=== PATIENT | female | born 1985 | race Caucasian/White ===

== ENCOUNTER 2016-10-13 08:33 | Emergency (ER) | payer MEDICAID ==
[~2016-10-13] VITALS: Ht 152.4 cm; Wt 56.3 kg
[2016-10-13 08:40] VITALS: Ht 152.4 cm; Wt 56.3 kg
--- NOTE | 2016-10-13 08:58 | ERD ---
ER Documentation Chief Complaint Date/Time DATE: 10/13/16 TIME: 08:56 Chief Complaint anxiety with cwp since yesterday, tearful HPI This a 31-year-old female who presents to the emergency department today complaining of chest wall pain that started yesterday while she was laying down. Patient states she took Advil with limited improvement. States that she is worried that there is something very wrong. Denies any fevers or chills, cough. 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 Denies any increased stress ROS All systems reviewed and are negative except as per history of present illness. Medications Home Meds Active Scripts Acetaminophen* (Tylophen*) 500 Mg Capsule, 1 CAP PO Q6H Y for PAIN AND OR ELEVATED TEMP, #30 CAP Prov:MARTINA DE LA GARZA PA-C 10/13/16 Naproxen* (Naprosyn*) 500 Mg Tablet, 500 MG PO BID Y for PAIN AND/OR INFLAMMATION, #30 TAB Prov:MARTINA DE LA GARZA PA-C 10/13/16 Physical Exam Vitals Vital Signs Date Time Temp Pulse Resp B/P Pulse Ox O2 Delivery O2 Flow Rate FiO2 10/13/16 08:40 98.1 80 18 140/78 99 Physical Exam Const: Tearful Head: Atraumatic Eyes: Normal Conjunctiva ENT: Normal External Ears, Nose and Mouth. Neck: Full range of motion..~ No meningismus. Resp: Clear to auscultation bilaterally. No absent breath sounds. No wheezing. Tenderness to palpation sternum and increased pain when trying turning to the right Cardio: Regular rate and rhythm, no murmurs Abd: Soft, non tender, non distended. Normal bowel sounds Skin: No petechiae or rashes Neur: Awake and alert Psych: Normal Mood and Affect Results 24 hrs Current Medications Medications (Trade) Dose Ordered Sig/Julia Route PRN Reason Start Time Stop Time Status Last Admin Dose Admin Acetaminophen/ Hydrocodone Bitart (Hancock (5/325)) 1 tab ONCE ONCE PO 10/13/16 09:00 10/13/16 09:01 DC 10/13/16 09:00 DIAGNOSTIC IMAGING REPORT Patient: MARY ANN SUAREZ : 1985 Age: 31 Sex: F MR #: [id number] DOS: 10/13/16 0000 Ordering MD: MARTINA DE LA GARZA PA-C Location: [facility] Room/Bed: PROCEDURE: XR Chest. CLINICAL INDICATION: Chest pain/shortness of breath TECHNIQUE: Chest PA. COMPARISON: No comparison available. FINDINGS: The mediastinal structures are unremarkable. The heart is normal in size and configuration. The pulmonary vascularity is normal. The lung camacho are unremarkable. No consolidation is identified. The pleural spaces are unremarkable. The axial skeleton is unremarkable. IMPRESSION: No active intrathoracic disease. RPTAT: HGDB .Raphael Eng MD, Date Time Electronically viewed and signed by .Raphael Eng MD, on 10/13/2016 09:23 .B/ CC: MARTINA DE LA GARZA PA-C Procedures/MDM This a 31-year-old female who presents to the emergency department today complaining of chest wall pain that started yesterday. Patient denied any increased stress and I do not feel that this is anxiety related however patient did indicate that she was worried that there was something really wrong with her. I did obtain a chest x-ray and EKG EKG read and interpreted by Dr. Mansfield. Rate [address] elevation. No QT prolongation. Normal sinus rhythm. Low suspicion for acute VA, PE, pericarditis. Chest x-ray no active intrathoracic disease. Patient is afebrile and otherwise well-appearing. She is not tachycardic. Her oxygen saturation is 99%. Low suspicion for pneumonia, PE, pleural effusion, abscess, pneumothorax. Patient did have substernal pain with compression as well as pain with turning her trunk to the right and her symptoms at this time appear more likely to be costochondritis. Patient was given Hancock here in the emergency department and pain improved. I will discharge her home with Naprosyn and Tylenol. At this time the patient is stable for discharge and outpatient management. Patient should follow up with their PCP in the next 1-2 days. They may return to the emergency department sooner for any persistent or worsening of symptoms. Patient understood and agreed with the plan. Departure Diagnosis: Primary Impression: Chest wall pain Condition: Fair MARTINA DE LA GARZA PA-C Oct 13, 2016 08:58
[2016-10-13] MEDS ORDERED: HYDROCODONE/APAP (5/325) TAB PO ONE (09:00)
--- NOTE | 2016-10-13 09:23 | RADRPT ---
PROCEDURE: XR Chest. CLINICAL INDICATION: Chest pain/shortness of breath TECHNIQUE: Chest PA. COMPARISON: No comparison available. FINDINGS: The mediastinal structures are unremarkable. The heart is normal in size and configuration. The pu lmonary vascularity is normal. The lung camacho are unremarkable. No consolidation is identified. The pleural spaces are unremarkable. The axial skeleton is unremarkable. IMPRESSION: No active intrathoracic disease. RPTAT: HGDB .Raphael Eng MD, MD Date Time Electronically viewed and signed by .Raphael Eng MD, on 10/13/2016 09:23 .B/
[2016-10-13] MEDS ORDERED: NAPR-260 PO (09:39)
[2016-10-13] MEDS ORDERED: ACET500C5 PO (09:39)
== END 2016-10-13 09:47 | disposition home or self-care (01) ==
LOC: FTE 08:33
DX: R07.89 Other chest pain (principal)
CPT/HCPCS: 71010; 93005; Z7610